=== PATIENT | female | born 1940 | race Caucasian/White ===

== ENCOUNTER 2016-04-20 13:12 | Inpatient (IN) | payer MEDICARE, BC ==
[~2016-04-20 13:12] MED LIST: AMBIEN10 MG PO; AZATHIOPRINE50 MG PO; BACITRACIN3.5 GM OP; BACLOFEN10 M1 PO; CELEXA40 M2 PO; CIPRO250 MG PO; COLACE100 MG PO; CONSTULOSE10 G/15 ML PO; COUMADIN5 M2 PO; DITROPAN XL10 M3 PO; DITROPAN5 MG PO; DULCOLAX10 MG/SUPP RC; ENEMA133 ML RC; FLEET ENEMA118 ML RC; HEPARIN5000 UNIT1 SC; HYDROCODONE/APA1 CAP PO; IMURAN PO; MILK OF MA400 MG/5 M PO; MIRALAX17 GM PO; MULTIVITAMIN W1 EAC1 PO; NYSTAT-RX8 GM MC; OCCUVITE PO; ONDANSETRON ODT4 M1 PO; PAIN RELIEF325 MG PO; PRILOSEC20 M1 PO; PROTONIX PO; SIMPLY SALINE NS; SODIUM CHLORID IV; SULFAMYLON453.6 GM TP; THERA-M1 EAC1 PO; VESICARE10 MG PO; VIBRAMYCIN100 M1 PO; VITAMIN B-6100 M1 PO; VITAMIN D1000 UNI2 PO; WARFARIN SODIU7.5 M2 PO; [UNRECOGNIZED DRUG - OTHER] RC; [UNRECOGNIZED DRUG - OTHER] RC
[2016-04-20] MEDS ORDERED: KEFLEX500 M4 PO (13:33)
[2016-04-20 18:03] LABS: BASO % 0.3 % (0-2); EOS % 1.8 % (0-7); EOSINOPHIL ABSOLUTE COUNT 0.1 tho/cmm (0.0-0.7); HCT-HEMATOCRIT 42.4 % (34.0-49.0); HGB-HEMOGLOBIN 14.2 gm/dl (12.0-15.5); IMMATURE GRANULOCYTES ABSOLUTE 0.02 tho/cmm (0-0.03); IMMATURE GRANULOCYTES PERCENT 0.3 % (0-0.3); LYMPH % 11.7 % (20-45); LYMPH ABSOLUTE COUNT 0.8 tho/cmm (0.8-4.5); MCH (MEAN CORPUSCULAR HGB) 31.4 pg (28.0-32.0); MCHC MEAN CORPUSCULAR HGB CONC 33.5 % (32.0-36.0); MCV (MEAN CELL VOLUME) 93.8 fl (82.0-96.0); MEAN PLATELET VOLUME 8.8 cmc (9.4-12.4); MONO % 9.9 % (0-12); MONOCYTE ABSOLUTE COUNT 0.7 tho/cmm (0.0-1.2); NEUTROPHIL ABSOLUTE COUNT 5.1 tho/cmm (1.6-8.0); NEUTROPHIL-AUTOMATED 5.1 tho/cmm (1.6-8.0); PLATELET COUNT 315 tho/cmm (150-450); RED BLOOD COUNT 4.52 mil/cmm (4.00-5.20); RED CELL DISTRIBUTION WIDTH 14.3 % (12.4-16.4); WHITE BLOOD COUNT 6.7 tho/cmm (4.0-10.0)
[2016-04-20 18:04] LABS: INR 2.3 INR (0.9-1.1); PROTHROMBIN TIME 27.1 SECONDS (9.0-13.6)
[2016-04-20 18:18] LABS: ALB/GLOB RATIO 0.7 (0.8-2.0); ALKALINE PHOSPHATASE 71 U/L (33-138); ALT/SGPT 48 U/L (12-78); BILIRUBIN,TOTAL 0.3 mg/dl (0-1.5); BLOOD UREA NITROGEN 8 mg/dl (6-24); CALCIUM 8.4 mg/dl (8.5-10.5); CARBON DIOXIDE-VENOUS 30 mmol/L (22-32); CHLORIDE 99 mmol/l (96-110); CREATININE 0.53 mg/dl (0.50-1.10); GLUCOSE 189 mg/dL (70-110); PREALBUMIN 22.9 mg/dl (20.0-40.0); SODIUM 134 mmol/L (135-145); eGFR VALUE FOR BLACK >60 mL/Min
[2016-04-20 18:20] LABS: ANION GAP 9 mmol/L (0-20); AST/SGOT 43 U/L (10-40); POTASSIUM 3.8 mmol/L (3.7-5.1)
[2016-04-22 09:28] LABS: INR 1.2 INR (0.9-1.1); PROTHROMBIN TIME 14.5 SECONDS (9.0-13.6)
[2016-04-23 06:28] LABS: INR 1.1 INR (0.9-1.1); PROTHROMBIN TIME 12.4 SECONDS (9.0-13.6)
[2016-04-23 11:21] LABS: HGB-HEMOGLOBIN 13.9 gm/dl (12.0-15.5); PLATELET COUNT 280 tho/cmm (150-450)
[2016-04-24 06:57] LABS: BASO % 0.7 % (0-2); EOS % 3.9 % (0-7); EOSINOPHIL ABSOLUTE COUNT 0.2 tho/cmm (0.0-0.7); HCT-HEMATOCRIT 41.7 % (34.0-49.0); IMMATURE GRANULOCYTES ABSOLUTE 0.02 tho/cmm (0-0.03); IMMATURE GRANULOCYTES PERCENT 0.5 % (0-0.3); LYMPH ABSOLUTE COUNT 0.9 tho/cmm (0.8-4.5); MCH (MEAN CORPUSCULAR HGB) 31.5 pg (28.0-32.0); MCHC MEAN CORPUSCULAR HGB CONC 33.6 % (32.0-36.0); MCV (MEAN CELL VOLUME) 93.9 fl (82.0-96.0); MEAN PLATELET VOLUME 8.6 cmc (9.4-12.4); MONO % 11.4 % (0-12); MONOCYTE ABSOLUTE COUNT 0.5 tho/cmm (0.0-1.2); NEUTROPHIL ABSOLUTE COUNT 2.7 tho/cmm (1.6-8.0); NEUTROPHIL-AUTOMATED 2.7 tho/cmm (1.6-8.0); NEUTROPHILS % 63.5 % (40-80); PLATELET COUNT 280 tho/cmm (150-450); RED BLOOD COUNT 4.44 mil/cmm (4.00-5.20); WHITE BLOOD COUNT 4.3 tho/cmm (4.0-10.0)
[2016-04-24 07:17] LABS: PROTHROMBIN TIME 11.2 SECONDS (9.0-13.6)
[2016-04-24 07:26] LABS: ANION GAP 8 mmol/L (0-20); BLOOD UREA NITROGEN 7 mg/dl (6-24); CALCIUM 8.5 mg/dl (8.5-10.5); CARBON DIOXIDE-VENOUS 31 mmol/L (22-32); CHLORIDE 102 mmol/l (96-110); CREATININE 0.31 mg/dl (0.50-1.10); GLUCOSE 104 mg/dL (70-110); POTASSIUM 3.9 mmol/L (3.7-5.1); SODIUM 137 mmol/L (135-145); eGFR VALUE FOR BLACK >60 mL/Min
[2016-04-24 10:00] LABS: PROCALCITONIN <0.05 ng/ml (0.05-0.09)
[2016-04-25 05:44] LABS: HGB-HEMOGLOBIN 13.4 gm/dl (12.0-15.5); PLATELET COUNT 302 tho/cmm (150-450)
[2016-04-25 05:49] LABS: PROTHROMBIN TIME 11.1 SECONDS (9.0-13.6)
[2016-04-25 06:36] LABS: PROCALCITONIN <0.05 ng/ml (0.05-0.09)
[2016-04-26 05:36] LABS: BASO % 0.3 % (0-2); EOS % 1.5 % (0-7); EOSINOPHIL ABSOLUTE COUNT 0.1 tho/cmm (0.0-0.7); HCT-HEMATOCRIT 35.8 % (34.0-49.0); HGB-HEMOGLOBIN 11.6 gm/dl (12.0-15.5); IMMATURE GRANULOCYTES ABSOLUTE 0.03 tho/cmm (0-0.03); IMMATURE GRANULOCYTES PERCENT 0.5 % (0-0.3); LYMPH % 16.6 % (20-45); LYMPH ABSOLUTE COUNT 1.1 tho/cmm (0.8-4.5); MCH (MEAN CORPUSCULAR HGB) 30.6 pg (28.0-32.0); MCHC MEAN CORPUSCULAR HGB CONC 32.4 % (32.0-36.0); MCV (MEAN CELL VOLUME) 94.5 fl (82.0-96.0); MEAN PLATELET VOLUME 8.8 cmc (9.4-12.4); MONO % 13.3 % (0-12); MONOCYTE ABSOLUTE COUNT 0.9 tho/cmm (0.0-1.2); NEUTROPHIL ABSOLUTE COUNT 4.4 tho/cmm (1.6-8.0); NEUTROPHIL-AUTOMATED 4.4 tho/cmm (1.6-8.0); NEUTROPHILS % 67.8 % (40-80); PLATELET COUNT 268 tho/cmm (150-450); RED BLOOD COUNT 3.79 mil/cmm (4.00-5.20); RED CELL DISTRIBUTION WIDTH 14.6 % (12.4-16.4)
[2016-04-26 05:42] LABS: PROTHROMBIN TIME 11.6 SECONDS (9.0-13.6); WHITE BLOOD COUNT 6.6 tho/cmm (4.0-10.0)
[2016-04-27 06:12] LABS: HGB-HEMOGLOBIN 10.7 gm/dl (12.0-15.5); PLATELET COUNT 253 tho/cmm (150-450)
[2016-04-27 06:13] LABS: PROTHROMBIN TIME 11.4 SECONDS (9.0-13.6)
[2016-04-29 07:10] LABS: BASO % 0.4 % (0-2); EOS % 4.2 % (0-7); EOSINOPHIL ABSOLUTE COUNT 0.2 tho/cmm (0.0-0.7); HCT-HEMATOCRIT 33.3 % (34.0-49.0); HGB-HEMOGLOBIN 10.6 gm/dl (12.0-15.5); IMMATURE GRANULOCYTES ABSOLUTE 0.02 tho/cmm (0-0.03); IMMATURE GRANULOCYTES PERCENT 0.4 % (0-0.3); LYMPH % 14.3 % (20-45); LYMPH ABSOLUTE COUNT 0.7 tho/cmm (0.8-4.5); MCH (MEAN CORPUSCULAR HGB) 30.4 pg (28.0-32.0); MCHC MEAN CORPUSCULAR HGB CONC 31.8 % (32.0-36.0); MCV (MEAN CELL VOLUME) 95.4 fl (82.0-96.0); MEAN PLATELET VOLUME 8.8 cmc (9.4-12.4); MONO % 10.2 % (0-12); MONOCYTE ABSOLUTE COUNT 0.5 tho/cmm (0.0-1.2); NEUTROPHIL ABSOLUTE COUNT 3.2 tho/cmm (1.6-8.0); NEUTROPHIL-AUTOMATED 3.2 tho/cmm (1.6-8.0); NEUTROPHILS % 70.5 % (40-80); PLATELET COUNT 293 tho/cmm (150-450); RED BLOOD COUNT 3.49 mil/cmm (4.00-5.20); RED CELL DISTRIBUTION WIDTH 14.5 % (12.4-16.4); WHITE BLOOD COUNT 4.5 tho/cmm (4.0-10.0)
[2016-04-29 07:27] LABS: PROCALCITONIN <0.05 ng/ml (0.05-0.09)
[2016-04-29 07:33] LABS: C-REACTIVE PROTEIN 1.8 mg/dl (0-0.9)
[2016-05-01 01:09] LABS: HGB-HEMOGLOBIN 10.8 gm/dl (12.0-15.5); PLATELET COUNT 314 tho/cmm (150-450)
[2016-05-02 06:18] LABS: ANION GAP 12 mmol/L (0-20); BLOOD UREA NITROGEN 5 mg/dl (6-24); CALCIUM 8.8 mg/dl (8.5-10.5); CARBON DIOXIDE-VENOUS 32 mmol/L (22-32); CHLORIDE 102 mmol/l (96-110); GLUCOSE 102 mg/dL (70-110); POTASSIUM 4.3 mmol/L (3.7-5.1); SODIUM 142 mmol/L (135-145); eGFR VALUE FOR BLACK >90 mL/Min
[2016-05-03 05:52] LABS: HGB-HEMOGLOBIN 10.9 gm/dl (12.0-15.5); PLATELET COUNT 378 tho/cmm (150-450)
[2016-06-16] MEDS ORDERED: NYSTOP60 GM EXT (16:06)
[2016-06-16] MEDS ORDERED: PROTONIX40 M2 PO (16:06)
[2016-06-16] MEDS ORDERED: OCEAN104 ML (16:07)
[2016-06-16] MEDS ORDERED: SENOKOT-S TABL1 EACH PO (16:07)
[2016-06-16] MEDS ORDERED: CAPHOSOL900 ML PO (16:08)
[2016-06-16] MEDS ORDERED: BISCOLAX10 MG PR (16:10)
[2016-06-16] MEDS ORDERED: MILK OF MAGNESIA PO (16:10)
[2016-06-16] MEDS ORDERED: ADULT GLYCERIN1 EACH PO (16:11)
[2016-06-16] MEDS ORDERED: NORCO 5-325 TA1 EACH PO (16:12)
[2016-06-16] MEDS ORDERED: TYLENOL325 M2 PO (16:12)
[2016-06-16] MEDS ORDERED: BELLADONNA PR (16:13)
== END 2016-05-04 11:05 | DRG 573 ==
LOC: WCC 13:12 → BURN 15:32 → ORW 04-24 14:21 → BURN 04-24 15:33 → ORW 05-02 13:54 → BURN 05-02 16:08
PROVIDERS: Family Medicine; Internal Medicine Infectious Disease; Physician Assistant Surgical; Surgery; ADMIT Surgery
PROC: B54NZZA Ultrasonography of Left Upper Extremity Veins, Guidance (ICD-10-PCS; 2016-04-20)
PROC: 05HF33Z Insertion of Infusion Device into Left Cephalic Vein, Percutaneous Approach (ICD-10-PCS; 2016-04-20)
PROC: 0QB20ZZ Excision of Right Pelvic Bone, Open Approach (ICD-10-PCS; principal; 2016-04-24)
PROC: 0JX Subcutaneous Tissue and Fascia, Transfer (ICD-10-PCS; 2016-05-02)
PROC: 3E0F7GC Introduction of Other Therapeutic Substance into Respiratory Tract, Via Natural or Artificial Opening (ICD-10-PCS; 2016-05-02)
DX: L89.214 Pressure ulcer of right hip, stage 4 (principal); G82.20 Paraplegia, unspecified; K59.2 Neurogenic bowel, not elsewhere classified; D69.6 Thrombocytopenia, unspecified; G35 Multiple sclerosis; F41.9 Anxiety disorder, unspecified; K59.09 Other constipation; N31.9 Neuromuscular dysfunction of bladder, unspecified; R32 Unspecified urinary incontinence; Z87.19 Personal history of other diseases of the digestive system; Z87.448 Personal history of other diseases of urinary system; Z98.890 Other specified postprocedural states
CPT/HCPCS: A9577; C1751; G0463; J0171; J1335; J1650; J7030; J7050

== ENCOUNTER 2016-06-19 10:21 | Day surgery (SDC) | payer OTHER, MEDICARE, BC ==
[~2016-06-19 10:21] MED LIST changes: +ADULT GLYCERIN1 EACH PO; +BELLADONNA PR; +BISCOLAX10 MG PR; +CAPHOSOL900 ML PO; +KEFLEX500 M4 PO; +MILK OF MAGNESIA PO; +NORCO 5-325 TA1 EACH PO; +NYSTOP60 GM EXT; +OCEAN104 ML; +PROTONIX40 M2 PO; +SENOKOT-S TABL1 EACH PO; +TYLENOL325 M2 PO
[2016-06-19] MEDS ORDERED: BACITRACIN28.4 G2 TP (10:52)
[2016-06-19] MEDS ORDERED: I-VITE TABLET1 EACH PO (10:53)
[2016-06-19 11:01] LABS: BASO % 0.4 % (0-2); EOS % 2.3 % (0-7); EOSINOPHIL ABSOLUTE COUNT 0.1 tho/cmm (0.0-0.7); HCT-HEMATOCRIT 41.9 % (34.0-49.0); HGB-HEMOGLOBIN 13.1 gm/dl (12.0-15.5); LYMPH % 14.6 % (20-45); LYMPH ABSOLUTE COUNT 0.7 tho/cmm (0.8-4.5); MCH (MEAN CORPUSCULAR HGB) 28.2 pg (28.0-32.0); MCHC MEAN CORPUSCULAR HGB CONC 31.3 % (32.0-36.0); MCV (MEAN CELL VOLUME) 90.1 fl (82.0-96.0); MEAN PLATELET VOLUME 8.9 cmc (9.4-12.4); MONO % 12.2 % (0-12); MONOCYTE ABSOLUTE COUNT 0.6 tho/cmm (0.0-1.2); NEUTROPHIL ABSOLUTE COUNT 3.4 tho/cmm (1.6-8.0); NEUTROPHIL-AUTOMATED 3.4 tho/cmm (1.6-8.0); NEUTROPHILS % 70.5 % (40-80); PLATELET COUNT 324 tho/cmm (150-450); RED BLOOD COUNT 4.65 mil/cmm (4.00-5.20); RED CELL DISTRIBUTION WIDTH 14.6 % (12.4-16.4); WHITE BLOOD COUNT 4.9 tho/cmm (4.0-10.0)
[2016-06-19 11:12] LABS: ANION GAP 11 mmol/L (0-20); BLOOD UREA NITROGEN 7 mg/dl (6-24); CALCIUM 8.9 mg/dl (8.5-10.5); CARBON DIOXIDE-VENOUS 31 mmol/L (22-32); CHLORIDE 104 mmol/l (96-110); CREATININE 0.41 mg/dl (0.50-1.10); GLUCOSE 83 mg/dL (70-110); POTASSIUM 4.4 mmol/L (3.7-5.1); SODIUM 142 mmol/L (135-145); eGFR VALUE FOR BLACK >90 mL/Min
[2016-06-20 05:43] LABS: INR 1.1 INR (0.9-1.1); PROTHROMBIN TIME 13.1 SECONDS (9.0-13.6)
[2016-06-20 05:51] LABS: ALB/GLOB RATIO 0.7 (0.8-2.0); ALBUMIN 2.7 g/dl (3.5-5.0); ALKALINE PHOSPHATASE 63 U/L (33-138); ALT/SGPT 36 U/L (12-78); BILIRUBIN,TOTAL 0.4 mg/dl (0-1.5); BLOOD UREA NITROGEN 9 mg/dl (6-24); CALCIUM 8.8 mg/dl (8.5-10.5); CARBON DIOXIDE-VENOUS 29 mmol/L (22-32); CHLORIDE 100 mmol/l (96-110); CREATININE 0.35 mg/dl (0.50-1.10); GLUCOSE 118 mg/dL (70-110); SODIUM 137 mmol/L (135-145); eGFR VALUE FOR BLACK >90 mL/Min
[2016-06-20 05:56] LABS: ANION GAP 13 mmol/L (0-20); AST/SGOT 47 U/L (10-40); POTASSIUM 4.6 mmol/L (3.7-5.1)
[2016-06-20 06:33] LABS: BASO % 0.1 % (0-2); HCT-HEMATOCRIT 37.1 % (34.0-49.0); IMMATURE GRANULOCYTES ABSOLUTE 0.02 tho/cmm (0-0.03); IMMATURE GRANULOCYTES PERCENT 0.2 % (0-0.3); LYMPH % 9.1 % (20-45); LYMPH ABSOLUTE COUNT 0.9 tho/cmm (0.8-4.5); MCH (MEAN CORPUSCULAR HGB) 28.5 pg (28.0-32.0); MCHC MEAN CORPUSCULAR HGB CONC 32.3 % (32.0-36.0); MCV (MEAN CELL VOLUME) 88.1 fl (82.0-96.0); MEAN PLATELET VOLUME 8.4 cmc (9.4-12.4); MONO % 9.5 % (0-12); NEUTROPHIL ABSOLUTE COUNT 8.2 tho/cmm (1.6-8.0); NEUTROPHIL-AUTOMATED 8.2 tho/cmm (1.6-8.0); NEUTROPHILS % 81.1 % (40-80); PLATELET COUNT 301 tho/cmm (150-450); RED BLOOD COUNT 4.21 mil/cmm (4.00-5.20); RED CELL DISTRIBUTION WIDTH 14.7 % (12.4-16.4)
[2016-06-20 06:34] LABS: WHITE BLOOD COUNT 10.2 tho/cmm (4.0-10.0)
[2016-06-20] MEDS ORDERED: NYSTOP60 GM EXT (16:06)
[2016-06-20] MEDS ORDERED: HYDROCODON-ACE1 EA16 PO (16:10)
== END 2016-06-20 16:05 ==
LOC: SRG 10:21 → SHSC 10:23 → ORW 12:02 → BURN 14:10
PROVIDERS: Anesthesiology; Surgery
PROC: 0KXF0ZZ Transfer Right Trunk Muscle, Open Approach (ICD-10-PCS; principal; 2016-06-19)
DX: L89.314 Pressure ulcer of right buttock, stage 4 (principal); G82.20 Paraplegia, unspecified; F41.9 Anxiety disorder, unspecified; F32.9 Major depressive disorder, single episode, unspecified; K21.9 Gastro-esophageal reflux disease without esophagitis; G35 Multiple sclerosis; N31.9 Neuromuscular dysfunction of bladder, unspecified; K59.00 Constipation, unspecified; Z79.01 Long term (current) use of anticoagulants; Z79.899 Other long term (current) drug therapy; Z88.0 Allergy status to penicillin; Z88.1 Allergy status to other antibiotic agents; Z88.2 Allergy status to sulfonamides; Z87.891 Personal history of nicotine dependence; Z86.718 Personal history of other venous thrombosis and embolism; Z90.49 Acquired absence of other specified parts of digestive tract; Z93.3 Colostomy status; Z98.890 Other specified postprocedural states
CPT/HCPCS: G8978-GP-CM; G8979-GP-CM; G8980-GP-CM; J0171; J3370; J7030